=== PATIENT | female | born 1980 | race Caucasian/White ===

== ENCOUNTER 2020-11-18 08:22 | Day surgery (SDC) | payer OTHER ==
[2020-11-18] MEDS ORDERED: Depo-Medrol 40 MG/ML IM ONE (08:23)
[2020-11-18] MEDS ORDERED: LIDOCAINE HCL 2% 100 MG/5 ML IJ ONE (08:23)
[2020-11-18] MEDS ORDERED: DIPRIVAN 200 MG/20 ML IV ONE (09:51)
[2020-11-18] MEDS ORDERED: Lactated Ringers 1,000 ML IV ONE (11:31)
--- NOTE | 2020-11-18 11:47 | XRAY ---
Indication: Bilateral L4-S1 MBB. Intraoperative fluoroscopy provided for 9 seconds. Single digital spot image submitted for interpretation demonstrates posterior needle tips projecting over the expected left and right L4-S1 nerve roots. Correlate with intraoperative findings/report.
--- NOTE | 2020-11-18 11:54 | XRAY ---
9 seconds of fluoroscopy was used in surgery for a bilateral L4-L5 and L5-S1 MBB.
== END 2020-11-18 10:15 | disposition home or self-care (01) ==
LOC: SDC-PAIN 08:22
PROVIDERS: ATTEND Psychiatry & Neurology Pain Medicine
DX: M47.816 Spondylosis without myelopathy or radiculopathy, lumbar region (principal); E11.9 Type 2 diabetes mellitus without complications; I48.91 Unspecified atrial fibrillation; R01.1 Cardiac murmur, unspecified; G40.909 Epilepsy, unspecified, not intractable, without status epilepticus; Z79.899 Other long term (current) drug therapy
CPT/HCPCS: 64493; 64494; 72020; 77002; 82947; J1030; J2704

== ENCOUNTER 2021-06-30 08:34 | Day surgery (SDC) | payer OTHER ==
[2021-06-30] MEDS ORDERED: Depo-Medrol 40 MG/ML IM ONE (08:35)
[2021-06-30] MEDS ORDERED: BUPIVACAINE 0.5% VIAL IJ ONE (08:35)
[2021-06-30] MEDS ORDERED: DIPRIVAN 200 MG/20 ML IV ONE (09:36)
[2021-06-30] MEDS ORDERED: Lactated Ringers 1,000 ML IV ONE (10:06)
--- NOTE | 2021-06-30 10:50 | XRAY ---
Indication: Bilateral L4-S1 MBB. Intraoperative fluoroscopy provided for 19 seconds. Single digital spot image submitted for interpretation demonstrates posterior needle tips projecting over the expected left and right L4-S1 nerve roots. Correlate with intraoperative findings/report.
--- NOTE | 2021-06-30 11:21 | XRAY ---
19 seconds fluoroscopy time in surgery for bilateral L4-S1 MBB.
== END 2021-06-30 10:09 | disposition home or self-care (01) ==
LOC: SDC-PAIN 08:34
PROVIDERS: ATTEND Psychiatry & Neurology Pain Medicine
DX: M47.816 Spondylosis without myelopathy or radiculopathy, lumbar region (principal); E11.9 Type 2 diabetes mellitus without complications; Z79.899 Other long term (current) drug therapy
CPT/HCPCS: 64493; 64494; 72020; 77002; 82947; J1030; J2704

== ENCOUNTER 2021-07-28 08:13 | Day surgery (SDC) | payer OTHER ==
[2021-07-28] MEDS ORDERED: BUPIVACAINE 0.5% VIAL IJ ONE (08:14)
[2021-07-28] MEDS ORDERED: Depo-Medrol 40 MG/ML IM ONE (08:14)
[2021-07-28] MEDS ORDERED: Xylocaine 1% Vial 30 ML PF IJ ONE (08:14)
[2021-07-28] MEDS ORDERED: Lactated Ringers 1,000 ML IV ONE (09:15)
[2021-07-28] MEDS ORDERED: DIPRIVAN 200 MG/20 ML IV ONE ×2 (10:06→10:15)
--- NOTE | 2021-07-28 10:46 | XRAY ---
Indication: Left L4-S1 RFA. Intraoperative fluoroscopy provided for 34 seconds. 3 digital spot image demonstrate posterior needle tips projecting over the expected left L4-S1 nerve roots. Correlate with intraoperative findings/report.
--- NOTE | 2021-07-28 10:48 | XRAY ---
34 seconds fluoroscopy time in surgery for left L4-S1 RFA.
== END 2021-07-28 10:39 | disposition home or self-care (01) ==
LOC: SDC-PAIN 08:13
PROVIDERS: ATTEND Psychiatry & Neurology Pain Medicine
DX: M47.816 Spondylosis without myelopathy or radiculopathy, lumbar region (principal); E11.9 Type 2 diabetes mellitus without complications; Z79.899 Other long term (current) drug therapy
CPT/HCPCS: 64635; 64636; 72100; 77002; 82947; J1030; J2001; J2704

== ENCOUNTER 2021-08-04 08:20 | Day surgery (SDC) | payer OTHER ==
[2021-08-04] MEDS ORDERED: BUPIVACAINE 0.5% VIAL IJ ONE (08:21)
[2021-08-04] MEDS ORDERED: Depo-Medrol 40 MG/ML IM ONE (08:21)
[2021-08-04] MEDS ORDERED: Xylocaine 1% Vial 30 ML PF IJ ONE (08:21)
[2021-08-04] MEDS ORDERED: DIPRIVAN 200 MG/20 ML IV ONE (09:43)
[2021-08-04] MEDS ORDERED: Lactated Ringers 1,000 ML IV ONE (09:46)
--- NOTE | 2021-08-04 10:27 | XRAY ---
Indication: Right L4-S1 RFA. Intraoperative fluoroscopy provided for 25 seconds. 3 digital spot image submitted for interpretation demonstrates posterior needle tips projecting over the expected right L4-S1 nerve roots. Correlate with intraoperative findings/report.
--- NOTE | 2021-08-04 10:30 | XRAY ---
25 seconds of fluoroscopy was used in surgery for a right L4-S1 RFA.
== END 2021-08-04 10:02 | disposition home or self-care (01) ==
LOC: SDC-PAIN 08:20
PROVIDERS: ATTEND Psychiatry & Neurology Pain Medicine
DX: M47.816 Spondylosis without myelopathy or radiculopathy, lumbar region (principal); E11.9 Type 2 diabetes mellitus without complications; Z79.899 Other long term (current) drug therapy
CPT/HCPCS: 64635; 64636; 72100; 77002; 82947; J1030; J2001; J2704

== ENCOUNTER 2024-05-29 12:19 | Day surgery (SDC) | payer OTHER ==
[2024-05-29] MEDS ORDERED: LIDOCAINE HCL 1% AMPUL 5 ML IJ ONE (12:20)
[2024-05-29] MEDS ORDERED: Depo-Medrol 40 MG/ML IM ONE (12:20)
[2024-05-29] MEDS ORDERED: BUPIVACAINE 0.5% VIAL IJ ONE (12:20)
--- NOTE | 2024-05-29 14:43 | XRAY ---
Indication: Left knee injection. Intraoperative fluoroscopy provided for 12 seconds. Single digital spot image submitted for interpretation demonstrates needle tip projecting over left femur intercondylar notch. Small amount of contrast injected for needle tip placement. Correlate with intraoperative findings/report.
--- NOTE | 2024-05-29 14:52 | XRAY ---
12 seconds of fluoroscopy was used in surgery for a left intra-articular knee injection.
== END 2024-05-29 13:20 | disposition home or self-care (01) ==
LOC: SDC-PAIN 12:19
PROVIDERS: ATTEND Psychiatry & Neurology Pain Medicine
DX: M17.12 Unilateral primary osteoarthritis, left knee (principal); E11.9 Type 2 diabetes mellitus without complications
CPT/HCPCS: 20610; 73560; 77002; 82947; Q9966

== ENCOUNTER 2025-04-02 15:04 | Day surgery (SDC) | payer OTHER ==
[2025-04-02] MEDS ORDERED: methylPREDNISolone acetate IM ONE (15:05)
[2025-04-02] MEDS ORDERED: BUPIVACAINE 0.5% VIAL IJ ONE (15:05)
--- NOTE | 2025-04-02 18:59 | XRAY ---
Indication: Left knee injection. Intraoperative fluoroscopy provided for 10 seconds. Single digital spot image submitted for interpretation demonstrates needle tip projecting over left femur intercondylar notch. Small amount of contrast injected for needle tip placement. Correlate with intraoperative findings/report.
--- NOTE | 2025-04-03 12:55 | XRAY ---
10 seconds of fluoroscopy was used in surgery for a left intra-articular knee injection.
== END 2025-04-02 17:35 | disposition home or self-care (01) ==
LOC: SDC-PAIN 15:04
PROVIDERS: ATTEND Psychiatry & Neurology Pain Medicine
DX: M17.12 Unilateral primary osteoarthritis, left knee (principal); E11.9 Type 2 diabetes mellitus without complications

== ENCOUNTER 2025-04-24 13:08 | Day surgery (SDC) | payer OTHER ==
[2025-04-24] MEDS ORDERED: LIDOCAINE HCL 1% 50 MG/5 ML VL IJ ONE (13:09)
--- NOTE | 2025-04-24 17:12 | XRAY ---
Indication: Left knee injection. Intraoperative fluoroscopy provided for 8 seconds. Single digital spot images submitted for interpretation demonstrates needle tip projecting over left femur intercondylar notch. Small amount of contrast injected for needle tip placement. Correlate with intraoperative findings/report.
--- NOTE | 2025-04-25 09:00 | XRAY ---
8 seconds of fluoroscopy were used in surgery for a left intra-articular knee injection.
== END 2025-04-24 15:10 | disposition home or self-care (01) ==
LOC: SDC-PAIN 13:08
PROVIDERS: ATTEND Psychiatry & Neurology Pain Medicine
DX: M17.12 Unilateral primary osteoarthritis, left knee (principal); E11.9 Type 2 diabetes mellitus without complications